=== PATIENT | female | born 1975 | race Caucasian/White ===

== ENCOUNTER → 2016-06-23 | Outpatient (CLI) | payer OTHER ==
--- NOTE | 2016-06-23 14:04 | MA ---
Screening Digital Mammogram With iCAD Analysis Reason for Examination: Routine screening. Breast parenchymal density: Type C; Heterogeneously dense. . Technique: Four views of each breast are obtained including CC and oblique lateral Logan (implant di splaced) and non-Logan (implant not displaced) views. Images were reviewed using the iCAD computer a ided detection system. Comparison: Baseline study; no previous mammograms have been performed. . Findings: Breast implants are in place bilaterally. iCAD is reviewed. No suspicious areas are identif ied. Breast implants diminish the sensitivity of mammography. Impression: Negative mammogram. BI-RADS 1. Recommendation: Routine screening is recommended in one year as long as physical examination is negat jonah. [facility] will send a result letter to the patient. Negative mammography should not preclude additional workup of a clinically suspicious finding. The patient's information is entered into a reminder system with a target due date for her next mammo gram.
== END ==
LOC: FIMAGING 11:54
DX: Z12.31 Encounter for screening mammogram for malignant neoplasm of breast (principal)
CPT/HCPCS: G0202